=== PATIENT | female | born 2005 | race Caucasian/White ===

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

== ENCOUNTER 2023-02-07 10:35 | Outpatient (AMB) | payer OTHER, SELFPAY ==
[2023-02-07 10:46] VITALS: BP 104/62; PULSE 71; RESP 12; TEMP 36.6; O2SAT 99; BMI 22.2
--- NOTE | 2023-02-07 10:46 | MHC.PC.OV ---
Vital Signs 02/07/23 10:46 Height 5 ft 1 in Weight 117 lb 6 oz BMI 22.2 BP 104/62 Blood Pressure Location Lt brachial Position Sitting Respiration 12 Pulse 71 Pulse Source Pulse Oximeter Temp 97.8 F Temp Source Temporal Artery Scan Pulse Oximetry (%) 99 Oxygen Delivery Method Room Air Intake Visit Reasons: Ongoing nausea Intake Note: Patient states that this has been occurring for the past 4-5 days. Patient states that it is usually happening in the morning. Patient states that she would like to get her blood drawn to test for . Patient states that she has noticed spots on her back and would like something prescribed to get rid of them, she was already prescribed ketoconazole 2%. District Ranger Required: No Accompanied by: Self / Same As Patient Allergies No Known Allergies Allergy (Verified 02/07/23 11:07) Medication List - Last Reconciled 02/07/23 by Tashia Florez CNP etonogestrel (Nexplanon) subdermal ketoconazole 2% topical 2XW Tobacco use date assessed: 10/11/22 Dental Screening Dental Screen Date: 02/07/23 Did you have a dental visit in the last 12 months?: Yes Did you have a dental problem in the last 6 months where you did not have access to dental care?: No Was dental information given to patient?: Patient has dentist HPI HPI Comments History of Present Illness Details 17-year-old female presents with complaints of nausea. She states she experiences symptoms in the morning. She notes her symptoms have been ongoing for the past 4-5 days. She reports yellow vomit. No abdominal pain No fever, chills, body aches, fatigue, or weakness. She requests blood hCG test. She reports h/o poor appetite and severe depression. She states she is in significant amount of stress related to family issues in the past few weeks. She currently sees a therapist every two weeks; her next appointment is next week. She states she was on psychotropic medications which she stopped taking because she did not find them useful. She does not wish to start taking psychotropic medications. She reports irregular menstruation. Her menstrual cycle sometimes last for 2 weeks and returns after 2 months. She is currently on day 1 of her menstrual cycle. She had two negative home tests 2-3 weeks ago. She notes she is sexually active, in a monogamous relationship, and practices safe sex. She states she is on Nexplanon; inserted last year. She is followed by [facility]. She requests a refill of ketoconazole for non itchy, discolored rash to her back. [facility] Medical History (Updated 02/07/23 @ 14:19 by Tashia Florez CNP) ADHD (attention deficit hyperactivity disorder) Anxiety Depression Lactating mother OCD (obsessive compulsive disorder) Surgical History No history of previous surgery Family History Mother Asthma Maternal Grandmother Hypertension High cholesterol Diabetes Paternal Grandfather Asthma Diabetes High cholesterol Hypertension Paternal Grandmother Asthma Social History Housing: House Alcohol intake: never Patient Tobacco Use Status: Never used Tobacco e-Cigarette/Vaping Use: Currently Using Substance Use Type: Marijuana service: No Current occupational status: employed Current occupation: [employer] Current occupational exposures/hazards: No Gender identity: Female Cognitive needs: No Hearing needs: No Vision needs: No Female Reproductive History Menstrual Age of Menarche: 10 Questionnaire PHQ-9 Over the last 2 weeks, how often have you been bothered by any of the following problems? 1. Little interest or pleasure in doing things: several days 2. Feeling down, depressed, or hopeless: several days 3. Trouble falling or staying asleep, or sleeping too much: more than half the days 4. Feeling tired or having little energy: several days 5. Poor appetite or overeating: more than half the days 6. Feeling bad about yourself - or that you are a failure or have let yourself or your family down: several days 7. Trouble concentrating on things, such as reading the newspaper or watching television: not at all 8. Moving or speaking so slowly that other people could have noticed. Or the opposite - being so fidgety or restless that you have been moving around a lot more than usual: more than half the days 9. Thoughts that you would be better off or of hurting yourself in some way: not at all Total score: 10 Depression Screening Interpretation: Positive Source: Developed by Drs. Fernando Fuentes, Hector Felipe and colleagues, with an educational niranjan from [employer]. Thrive Questionnaire Date Thrive assessed: 10/11/22 JOSE GUADALUPE-7 AMB Questionnaire JOSE GUADALUPE-7 Date JOSE GUADALUPE - 7 assessed: 02/07/23 Feeling nervous, anxious, or on edge: 3 = Nearly every day Not being able to stop or control worryin = Several days Worrying too much about different things: 3 = Nearly every day Trouble relaxin = Several days Being so restless that it is hard to sit still: 0 = Not at all Becoming easily annoyed or irritable: 1 = Several days Feeling afraid as if something awful might happen: 1 = Several days Total JOSE GUADALUPE-7 score (0-4 normal; 5-9 mild; 10-14 moderate; 15-21 severe): 10 Source: Developed by Drs. Fernando Fuentes, Hector Felipe and colleagues, with an educational niranjan from [employer]. Review of Systems Const Details: Const Denies chills, Denies fatigue, Denies fever(s), Denies headache(s) and Denies weakness ENT Denies dizziness and Denies headache(s) Card Denies chest pain, Denies lightheadedness, Denies dyspnea and Denies other (Palpitations) Resp Denies cough, Denies dyspnea, Denies wheezing and Denies other ( shortness of breath) GI Reports nausea, Denies abdominal pain, Denies melena, Denies hematochezia, Denies change in bowel habits, Denies dyspepsia Denies hematuria and Denies dysuria Musc Denies abnormal gait, Denies myalgias, Denies arthralgias, Denies numbness and Denies tingling Skin/Breast Reports rash, Denies unusual bruising and Denies wounds Neuro Denies abnormal gait, Denies dizziness, Denies headache(s), Denies memory loss, Denies numbness, Denies Sensory deficit (Neuro), Denies tingling and Denies weakness Psych Reports anxiety, Reports depression, Denies memory loss Endo Denies cold intolerance, Denies fatigue, Denies heat intolerance, Denies polydipsia and Denies polyuria Aller/Immun Denies wheezing Physical exam (Primary Care) Vital Signs: Last Vital Signs Temp 97.8 F 02/07/23 10:46 Pulse 71 02/07/23 10:46 Resp 12 02/07/23 10:46 BP 104/62 02/07/23 10:46 Pulse Ox 99 02/07/23 10:46 Oxygen Delivery Method Room Air 02/07/23 10:46 BMI result Body Mass Index 22.2 Tobacco/Smoking Status: Tobacco use Status Tobacco use date assessed 10/11/22 02/07/23 11:01 Patient Tobacco Use Status Never used Tobacco 02/07/23 11:01 e-Cigarette/Vaping Use Currently Using 02/07/23 11:01 PHQ-9: PHQ-9 Score PHQ-9: Total score 10 02/07/23 11:34 Depression Screening Interpretation: Positive Thrive Assessment: Date of Thrive Assessment Date Thrive assessed 10/11/22 02/07/23 11:01 Const Other: General: no acute distress and well developed Nutritional Appearance: well nourished Orientation/consciousness: patient oriented x3 HENMT Head: Yes normocephalic and Yes atraumatic Eyes General: appearance normal, both eyes and all related structures Pupils: Equal, round and reactive pupils present EOM: EOMs intact bilaterally Resp Effort & Inspection: normal respiratory effort Auscultation: clear to auscultation bilaterally Cardio Rate: regular rate Rhythm: regular rhythm Heart sounds: S1 normal heart sound present, S2 normal heart sound present, no gallops, no murmurs and no rubs GI Palpation (GI): No Abdominal aortic bruit present, Soft to palpation, nontender, No hepatosplenomegaly present and No Rebound tenderness present Auscultation: normal bowel sounds General: Yes no CVA tenderness Back/Spine/Pelvis Back: no CVA tenderness Cervical Spine: cervical ROM normal and No Cervical spine tenderness Thoracic/Lumbar Spine: thoraco-lumbar ROM normal, No pain with thoraco-lumbar ROM, No thoracic spinal tenderness and No lumbar spinal tenderness Extrem General: Yes normal to inspection, No edema and No calf tenderness Skin General: warm and dry. Normal skin color. Normal skin turgor Lesions: no lesions Rashes: Small, discolored patches of skin to the back, consistent with tinea versicolor Trauma: no lacerations or abrasions Wounds: no wounds Nails: normal Neuro General: patient oriented x3, gait normal and no focal neuro deficit Cranial nerves: Yes Equal, round and reactive pupils present Cognition (Neuro): normal cognition Gait exam (Neuro): Normal gait present Sensory Exam: No Sensory deficit (Neuro) Psych Appearance: grossly normal Affect: normal affect Attitude: cooperative Thought process: Normal thought process present Assessment and Plan Assessment & Plan (1) Nausea & vomiting: Code(s): R11.2 - Nausea with vomiting, unspecified Plan: Reports nausea and vomiting for the past for 4-5 days Zofran ordered. Take as prescribed Small sips of fluids encouraged HCG quantitative and UA ordered. Encouraged to get outstanding fasting blood work done Follow-up with worsening or new symptoms Verbalized understanding and agreed with treatment plan. (2) Tinea versicolor: Code(s): B36.0 - Pityriasis versicolor Plan: Small, discolored patches of skin to the back, consistent with tinea versicolor Ketoconazole ordered. Use as prescribed Follow-up with worsening or new signs and symptoms Verbalized understanding and agreed with treatment plan. (3) Depression: Code(s): F32.A - Depression, unspecified Plan: She states she is in significant amount of stress related to family issues in the past few weeks. She currently sees a therapist every two weeks; her next appointment is next week. She states she was on psychotropic medications which she stopped taking because she did not find them useful. She does not wish to start taking psychotropic medications. PHQ-9 and JOSE GUADALUPE-7 scores revealed moderate anxiety and depression Continue follow-up with therapist as planned Routine exercise encouraged Return with worsening or new symptoms Verbalized understanding and agreed with treatment plan. (4) Anxiety: Code(s): F41.9 - Anxiety disorder, unspecified Plan: As above Orders: Orders UA CC w/rflx Micro + Cult Today R11.2 - Nausea with vomiting, unspecified HCG Quantitative Today R11.2 - Nausea with vomiting, unspecified Medications: New ondansetron 4 mg PO Q8H PRN 6 tabs 0RF nausea and vomiting ketoconazole 2% 1 appl topical 2XW 120 mL 0RF Coding Level of Care Code Est Pt Level 3 (42860) Diagnoses Nausea & vomiting R11.2 Tinea versicolor B36.0 Depression F32.A Anxiety F41.9 Time Spent (min) 25
== END 2023-02-07 11:37 | disposition home or self-care (01) ==
PROVIDERS: PCP Hospitalist; Visit Provider Nurse Practitioner Family
DX: R11.2 Nausea with vomiting, unspecified (principal); B36.0 Pityriasis versicolor; F32.A Depression, unspecified; F41.9 Anxiety disorder, unspecified
CPT/HCPCS: 99213

== ENCOUNTER 2023-02-07 11:50 | Outpatient (REF) | payer OTHER, SELFPAY ==
[2023-02-07 15:17] LABS: Hematocrit 39.7 % (37.0-47.0); Hemoglobin 13.4 g/dl (12.0-16.0); Mean Corpuscular HGB Conc 33.8 g/dl (31.0-35.0); Mean Corpuscular Hemoglobin 30.2 pg (27.0-33.0); Mean Corpuscular Volume 89.4 fL (80.0-98.0); Mean Platelet Volume 10.9 fL (9.4-12.3); Platelet Count 263 X10*3/uL (160-400); Red Blood Count 4.44 X10*6/uL (4.20-5.50); Red Cell Distribution Width 12.9 % (11.0-16.0); White Blood Count 4.8 X10*3/uL (4.8-10.8)
[2023-02-07 15:25] LABS: Appearance Urine Turbid; Color Urine Dark Yellow; Glucose Urine UA Negative (Negative); Leukocyte Esterase Urine Negative (Negative); Nitrite Urine Negative (Negative); Specific Gravity - Urine >= 1.030 (1.005-1.025); UMIC TRIGGER UACC YES; Urine Blood Large (3+) (Negative); Urine Ketones 15 mg/dL (Negative); Urine Protein 100 (2+) mg/dL (Neg-Trace)
[2023-02-07 15:52] LABS: Bacteria Urine 4+ (None Seen); RBC Urine 0-2 /HPF (0-2); Squamous Epithelial Cell Urine >20 /HPF (0-2); WBC Urine 0-5 /HPF (0-5)
[2023-02-07 15:54] LABS: Alanine Aminotransferase 11 U/L (0-31); Albumin Level 4.5 g/dL (3.5-5.0); Alkaline Phosphatase 55 U/L (39-117); Anion Gap 12 (12-20); Aspartate Amino Transferase 18 U/L (5-31); Bilirubin Total 0.6 mg/dL (0.0-1.0); Blood Urea Nitrogen 8 mg/dL (9-16); Calcium 9.3 mg/dL (8.4-10.2); Carbon Dioxide 23 mmol/L (22-29); Chloride 109 mmol/L (96-108); Cholesterol 140 mg/dL; Estimated Glomerular Filt Rate > 60; Glucose Fasting 94 mg/dL (60-99); HDL Cholesterol 40 mg/dL; LDL Cholesterol Calculated 92 mg/dl; Sodium 140 mmol/L (135-145); Total Protein 7.3 g/dL (6.5-8.0); Triglycerides 40 mg/dL
[2023-02-07 16:50] LABS: HCG Quantitative < 2 mIU/mL
[2023-02-07 16:57] LABS: TSH reflex Free T4 0.56 uIU/mL (0.32-4.0)
== END 2023-02-07 11:51 | disposition home or self-care (01) ==
LOC: HO.LAB 11:50
PROVIDERS: Hospitalist; Visit Provider Nurse Practitioner Family
DX: Z00.00 Encounter for general adult medical examination without abnormal findings (principal); R11.2 Nausea with vomiting, unspecified; D64.9 Anemia, unspecified
CPT/HCPCS: 36415; 80053; 80061; 81001; 84443; 84702; 85027

== ENCOUNTER 2023-08-12 13:48 | Outpatient (AMB) | payer OTHER, SELFPAY ==
[2023-08-12 13:49] VITALS: BP 122/70; PULSE 90; TEMP 36.9; O2SAT 99; BMI 21.4
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
== END 2023-08-12 14:21 | disposition home or self-care (01) ==
PROVIDERS: PCP Hospitalist; Visit Provider Nurse Practitioner Family
DX: S01.512A Laceration without foreign body of oral cavity, initial encounter (principal); Z09 Encounter for follow-up examination after completed treatment for conditions other than malignant neoplasm
CPT/HCPCS: 99215

== ENCOUNTER 2023-09-23 13:07 | Outpatient (AMB) | payer OTHER, SELFPAY ==
--- NOTE | 2023-09-23 13:10 | A.OFFPC_ITS ---
Vital Signs 09/23/23 13:13 Height 5 ft 1 in Weight 122 lb BMI 23.0 BP 114/59 L Blood Pressure Location Lt brachial Position Sitting Respiration 12 Pulse 72 Pulse Source Pulse Oximeter Temp 98.2 F Temp Source Temporal Artery Scan Pulse Oximetry (%) 100 Oxygen Delivery Method Room Air Intake Visit Reasons: est care/iron def anemia concerns Intake Note: Patient is here to establish care with KO. Patient reports concerns for anemia; has symptoms of feeling cold. Patient reports she feels like she sweats a lot and experiences odor with her feet and armpits rapidly. Patient reports trying different deodorants and nothing is helping. Recyclable Materials Sorter Required: No Accompanied by: Self / Same As Patient Allergies No Known Allergies Allergy (Verified 09/23/23 13:39) Medication List - Last Reconciled 09/23/23 by Alondra Valdes, [facility]- ketoconazole 2% 1 appl topical 2XW medroxyprogesterone (Depo-Provera) 150 mg IM [id number] Tobacco use date assessed: 09/23/23 Dental Screening Dental Screen Date: 09/23/23 Did you have a dental visit in the last 12 months?: Yes Did you have a dental problem in the last 6 months where you did not have access to dental care?: No Was dental information given to patient?: Patient has dentist HPI HPI Comments History of Present Illness Details 18-year-old female MDD, generalized anxi ety disorder, OCD, ADHD, tinea versicolor Specialists: [facility] Health Maintenance: Vaccines: UTD on Tdap, declines flu. Here today to establish care. Tells me today that she worries about anemia. Feels cold all of the time. Has overall poor dietary patterns. Denies heavy menstruation. Uses the Depo shot. Denies syncope collapse shortness of breath and chest pain. In regards to her mood she admits anxiety and depression. She is active with a counselor at this time. She has not currently on medications but has been in the past. Describes eating disorder behaviors of restriction for days followed by bingeing. Denies purging. Admits inpatient psych care and [place] in the past. I do not have these records. She has no interest in medications at the current time. Finally she is worried about excessive sweating and body odor. Specifically vaginal odor. Reports a history of bacterial vaginosis. [facility] Medical History (Updated 09/23/23 @ 14:01 by MARIA ALEJANDRA Springer) History of hemorrhage Depression Anxiety ADHD (attention deficit hyperactivity disorder) OCD (obsessive compulsive disorder) Surgical History No history of previous surgery Family History (Updated 09/23/23 @ 13:21 by Julissa Leon CMA) Mother Asthma Maternal Grandmother Hypertension High cholesterol Diabetes Paternal Grandfather Asthma Diabetes High cholesterol Hypertension Paternal Grandmother Asthma Social History (Updated 09/23/23 @ 13:22 by Julissa Leon CMA) Household Members: Family and Children Housing: House Are you a primary social worker palliative care to a significant other at home: No Do you presently have visiting nurse or other home services: No Alcohol intake: current Alcohol intake frequency: holidays/special occasions only Patient Tobacco Use Status: Never used Tobacco e-Cigarette/Vaping Use: Currently Using Substance Use Type: Marijuana service: No Current occupational status: employed Current occupation: [email or web address] Current occupational exposures/hazards: No Sexual orientation: Straight/Heterosexual Gender identity: Female Cognitive needs: No Hearing needs: No Vision needs: No Female Reproductive History Menstrual Age of Menarche: 10 Questionnaire PHQ-9 Over the last 2 weeks, how often have you been bothered by any of the following problems? 1. Little interest or pleasure in doing things: several days 2. Feeling down, depressed, or hopeless: not at all 3. Trouble falling or staying asleep, or sleeping too much: several days 4. Feeling tired or having little energy: nearly every day 5. Poor appetite or overeating: more than half the days 6. Feeling bad about yourself - or that you are a failure or have let yourself or your family down: several days 7. Trouble concentrating on things, such as reading the newspaper or watching television: nearly every day 8. Moving or speaking so slowly that other people could have noticed. Or the opposite - being so fidgety or restless that you have been moving around a lot more than usual: not at all 9. Thoughts that you would be better off or of hurting yourself in some way: not at all Total score: 11 Depression Screening Interpretation: Positive Depression Screening Follow-up: E xisting condition and In treatment Depression Screening Done: Yes 12589 - PHQ-9 Billing: Yes Source: Developed by Drs. Fernando Fuentes, Mita Kim, Hector Ruiz and colleagues, with an educational niranjan from [email or web address]. Thrive Questionnaire Date Thrive assessed: 09/23/23 I am a: Patient What is your living situation today?: I have a steady place to live Within the past 12 months, did the food you bought not last and you didn't have the money to get more?: Never true Within the past 12 months, did you worry whether your food would run out before you got money to buy more?: Never true Do you have trouble paying for medicines?: No Do you have trouble getting transportation to medical appointments?: No Do you have trouble paying your heating and electricity bill?: No Do you have trouble taking care of your child, family member or friend?: No Do you have trouble with day-to-day activities such as bathing, preparing meals, shopping, managing finances, etc.?: No Are you currently unemployed and looking for a job?: No Are you interested in more education?: No Please select the resources that you would like help with: None Currently or been in a relationship where the following occur: no concerns reported THRIVE Score: 0 AUDIT C Alcohol Use Questionnaire (AUDIT-C) 1. How often do you have a drink containing alcohol?: Monthly or less 2. How many drinks containing alcohol do you have on a typical day when you are drinking?: 1 or 2 3. How often do you have six or more drinks on one occasion?: Never Total Score: 1 Score Reviewed/Action Taken: Yes JOSE GUADALUPE-7 AMB Questionnaire JOSE GUADALUPE-7 Date JOSE GUADALUPE - 7 assessed: 09/23/23 Feeling nervous, anxious, or on edge: 2 = More than half the days Not being able to stop or control worryin = Nearly every day Worrying too much about different things: 3 = Nearly every day Trouble relaxin = Several days Being so restless that it is hard to sit still: 2 = More than half the days Becoming easily annoyed or irritable: 1 = Several days Feeling afraid as if something awful might happen: 1 = Several days Total JOSE GUADALUPE-7 score (0-4 normal; 5-9 mild; 10-14 moderate; 15-21 severe): 13 Source: Developed by Drs. Fernando Fuentes, Mita Kim, Hector Ruiz and colleagues, with an educational niranjan from [email or web address]. JOSE GUADALUPE-7 Assessment Billing JOSE GUADALUPE-7 Assessment Tool: JOSE GUADALUPE-7 Assessment 10859 Physical exam (Primary Care) Vital Signs: Last Vital Signs Temp 98.2 F 09/23/23 13:13 Pulse 72 09/23/23 13:13 Resp 12 09/23/23 13:13 BP 114/59 L 09/23/23 13:13 Pulse Ox 100 09/23/23 13:13 Oxygen Delivery Method Room Air 09/23/23 13:13 BMI result Body Mass Index 23.0 Tobacco/Smoking Status: Tobacco use Status Tobacco use date assessed 09/23/23 09/23/23 13:26 Patient Tobacco Use Status Never used Tobacco 09/23/23 13:22 e-Cigarette/Vaping Use Currently Using 09/23/23 13:22 PHQ-9: PHQ-9 Score PHQ-9: Total score 11 09/23/23 13:26 Depression Screening Interpretation: Positive Depression Screening Follow-up: Existing condition and In treatment Thrive Assessment: Date of Thrive Assessment Date Thrive assessed 09/23/23 09/23/23 13:26 Currently or been in a relationship where the following occur: no concerns reported Const Other: Awake alert oriented no acute distress Conjunctival pallor bilat Mucous membranes moist Regular rate and rhythm Lung sounds clear to auscultation bilat Self swab for BV performed today Flat mood and affect. Very soft-spoken. Pleasant. Assessment and Plan Assessment & Plan (1) Anemia: Comment: History of iron-deficiency anemia in the setting of poor dietary habits. We will check labs and bring back to discuss Code(s): D64.9 - Anemia, unspecified Qualifiers: Anemia type: iron deficiency Iron deficiency anemia type: inadequate dietary iron intake Qualified Code(s): D50.8 - Other iron deficiency anemias (2) Vaginal odor: Comment: BV swab obtained today. We will treat as appropriate. Code(s): N89.8 - Other specified noninflammatory disorders of vagina (3) MDD (major depressive disorder), recurrent episode: Comment: Current active not on medications. Active with a counselor. Reports some medications in the past along with inpatient psych stay in [place]. I do not have these records. Offered and declined medication today Code(s): F33.9 - Major depressive disorder, recurrent, unspecified Qualifiers: Major depression episode severity: moderate Qualified Code(s): F33.1 - Major depressive disorder, recurrent, moderate (4) JOSE GUADALUPE (generalized anxiety disorder): Comment: Current active not on medications. Active with a counselor. Reports some medications in the past along with inpatient psych stay in [place]. I do not have these records. Offered and declined medication today Code(s): F41.1 - Generalized anxiety disorder (5) Binge eating disorder: Comment: With subjective reports. This is a concerning diagnosis. We will check her labs. Offered support. She is already active with a counselor. She has no interest in medications. We will need to maintain a close eye on her. Code(s): F50.81 - Binge eating disorder Plan This note is constructed using voice recognition software. While every effort has been made to ensure accuracy in primary school principal, still errors may have been included Sometimes, these errors may affect the content or meaning of the given sentence . Total time spent caring for the patient today was 45 minutes. This includes time spent before the visit reviewing the chart, time spent during the visit, and time spent after the visit on documentation Orders: Orders Lipid Panel Today D64.9 - Anemia, unspecified, N89.8 - Other specified noninflammatory disorders of vagina TSH reflex Free T4 Today D64.9 - Anemia, unspecified, N89.8 - Other specified noninflammatory disorders of vagina Vitamin D 1,25 dihydroxy Today D64.9 - Anemia, unspecified, N89.8 - Other specified noninflammatory disorders of vagina IRON PROFILE Today D64.9 - Anemia, unspecified, N89.8 - Other specified noninflammatory disorders of vagina CT NG by PCR Today D64.9 - Anemia, unspecified, N89.8 - Other specified noninflammatory disorders of vagina Bacterial Vaginosis Panel Today N89.8 - Other specified noninflammatory disorde rs of vagina Comprehensive Met. Panel Today D64.9 - Anemia, unspecified, N89.8 - Other specified noninflammatory disorders of vagina Microalbumin, Random (w Creat) Today D64.9 - Anemia, unspecified, N89.8 - Other specified noninflammatory disorders of vagina Vitamin B12 and Folate Today D64.9 - Anemia, unspecified, N89.8 - Other specified noninflammatory disorders of vagina Zinc Today D64.9 - Anemia, unspecified, N89.8 - Other specified noninflammatory disorders of vagina Patient Instructions: Return to office in 2-3 weeks to review labs and follow up on concerns for excessive sweating anemia and mood Coding Level of Care Code Est Pt Level 5 (99921) Diagnoses Iron deficiency anemia secondary to inadequate dietary iron intake D50.8 Anemia type: iron deficiency Iron deficiency anemia type: inadequate dietary iron intake Vaginal odor N89.8 Moderate episode of recurrent major depressive disorder F33.1 Major depression episode severity: moderate JOSE GUADALUPE (generalized anxiety disorder) F41.1 Binge eating disorder F50.81 Additional Codes JOSE GUADALUPE-7 Assessment Billing - JOSE GUADALUPE-7 Assessment Tool: JOSE GUADALUPE-7 Assessment 29128 ([id number])
[2023-09-23 13:13] VITALS: BP 114/59; PULSE 72; RESP 12; TEMP 36.8; O2SAT 100; BMI 23.0
== END 2023-09-23 13:54 | disposition home or self-care (01) ==
PROVIDERS: PCP Hospitalist; Visit Provider Nurse Practitioner Family
DX: D50.8 Other iron deficiency anemias (principal); N89.8 Other specified noninflammatory disorders of vagina; F33.1 Major depressive disorder, recurrent, moderate; F41.1 Generalized anxiety disorder; F50.81 Binge eating disorder
CPT/HCPCS: 99215

== ENCOUNTER 2023-09-23 13:46 | Outpatient (REF) | payer OTHER, SELFPAY ==
[2023-09-25 10:18] LABS: BV Int Neg Control Negative (Negative); BV Int Pos Control Positive (Positive)
== END 2023-09-23 13:47 | disposition home or self-care (01) ==
LOC: HO.LAB 13:46
PROVIDERS: Visit Provider Nurse Practitioner Family
DX: N89.8 Other specified noninflammatory disorders of vagina (principal)
CPT/HCPCS: 87480; 87510; 87660

== ENCOUNTER 2023-09-26 12:05 | Outpatient (REF) | payer OTHER, SELFPAY ==
[2023-09-26 15:42] LABS: Creatinine Urine 94.35 mg/dL; Microalbumin Urine < 5.0 mg/L
[2023-09-26 15:57] LABS: Alanine Aminotransferase 11 U/L (0-31); Albumin Level 4.4 g/dL (3.5-5.0); Alkaline Phosphatase 76 U/L (39-117); Anion Gap 10 (12-20); Aspartate Amino Transferase 11 U/L (5-31); Bilirubin Total 0.3 mg/dL (0.0-1.0); Blood Urea Nitrogen 12 mg/dL (9-16); Calcium 8.8 mg/dL (8.4-10.2); Carbon Dioxide 24 mmol/L (22-29); Chloride 111 mmol/L (96-108); Cholesterol 119 mg/dL (<200); Estimated Glomerular Filt Rate > 60; Glucose Random 90 mg/dL (60-115); HDL Cholesterol 52 mg/dL (>40); Iron 84 mcg/dL (30-160); LDL Cholesterol Calculated 60 mg/dL (<100); Percent Iron Saturation 28 % (15-50); Potassium 4.3 mmol/L (3.3-5.1); Sodium 141 mmol/L (135-145); Total Iron Binding Capacity 298 mcg/dL (228-428); Total Protein 6.9 g/dL (6.5-8.0); Triglycerides 35 mg/dL (<150); Unsaturated Iron Binding 214 ug/dL
[2023-09-26 16:16] LABS: TSH reflex Free T4 0.63 uIU/mL (0.32-4.0)
[2023-09-26 16:18] LABS: Folate 9.5 ng/mL (> or = 4.0); Vitamin B12 352 pg/mL (200-900)
[2023-09-30 23:23] LABS: VITAMIN D (1,25 OH) D3 40 pg/mL; Vit D (1,25-Dihydroxy) Total 40 pg/mL (18-72); Vitamin D (1,25 OH) D2 <8 pg/mL
== END 2023-09-26 12:06 | disposition home or self-care (01) ==
LOC: HO.WFDLDS 12:05
PROVIDERS: Visit Provider Nurse Practitioner Family
DX: D64.9 Anemia, unspecified (principal); N89.8 Other specified noninflammatory disorders of vagina
CPT/HCPCS: 36415; 80053; 80061; 82043; 82570; 82607; 82652; 82746; 83540; 84443